=== PATIENT | male | born 1980 | race Caucasian/White ===

== ENCOUNTER 2020-11-14 12:37 | Emergency (ER) | payer MEDICAID ==
[~2020-11-14] VITALS: Ht 170.2 cm; Wt 79.5 kg
[2020-11-14 12:40] VITALS: Ht 170.2 cm; Wt 79.5 kg
[2020-11-14 13:03] LABS: BILIRUBIN NEGATIVE (NEGATIVE); KETONE SMALL mg/dL (NEGATIVE); NITRITE NEGATIVE (NEGATIVE); UROBILINOGEN NORMAL mg/dL (< 2)
[2020-11-14 13:06] LABS: BASOPHILS 1.1 % (0-2); EOSINOPHILS 14.3 % (0-7); HEMOGLOBIN 15.7 g/dL (13.5-17.5); IMMATURE GRANULOCYTES 0.2 % (0-5); LYMPHOCYTE ABS# 2.93 10x3/uL (1.32-3.57); LYMPHOCYTES 29.4 % (15-50); MCH 33.1 pg (26.0-34.0); MCHC 34.9 g/dL (31.0-37.0); MCV 94.7 fL (80.0-100.0); MONOCYTES 6.5 % (2-11); NEUTROPHIL ABS# 4.84 10x3/uL (1.78-5.38); NEUTROPHILS 48.5 % (40-80); PLATELET COUNT 208 10x3/uL (130-400); RBC 4.75 10x6/uL (4.20-6.10); RDW 13.4 % (11.5-14.5)
[2020-11-14 13:17] LABS: UDS - AMPHET POSITIVE QUAL (NEGATIVE); UDS - BARB NEGATIVE QUAL (NEGATIVE); UDS - BENZO NEGATIVE QUAL (NEGATIVE); UDS - COCAINE NEGATIVE QUAL (NEGATIVE); UDS - OPIATE NEGATIVE QUAL (NEGATIVE); UDS - PCP NEGATIVE QUAL (NEGATIVE); UDS - THC NEGATIVE QUAL (NEGATIVE)
[2020-11-14 13:21] LABS: CALC OSMOLALITY 282 mosm/kg (275-300); CARBON DIOXIDE 25.9 mmol/L (21.0-32.0); CHLORIDE - SERUM 104 mmol/L (98-107); CREATININE - SERUM 1.3 mg/dL (0.6-1.3); POTASSIUM - SERUM 3.4 mmol/L (3.5-5.1); SODIUM 140 mmol/L (136-145); UREA NITROGEN 12 mg/dL (7-18); eGFR NON AFRICAN AMERICAN 65 mL/min (90-120)
[2020-11-14 13:23] LABS: GLUCOSE 163 mg/dL (74-106)
[2020-11-14 13:27] LABS: ALBUMIN 3.7 g/dL (3.4-5.0); ALKALINE PHOSPHATASE 127 U/L (30-120); ALT (SGPT) 101 U/L (10-68); BILIRUBIN - TOTAL 0.57 mg/dL (0.2-1.3); MAGNESIUM - SERUM 2.2 mg/dL (1.8-2.4); PROTEIN - SERUM 7.6 g/dL (6.4-8.2)
[2020-11-14 13:30] LABS: ACETAMINOPHEN < 10.0 ug/mL (10.0-30.0)
--- NOTE | 2020-11-14 14:32 | NUR ---
Patient scored a moderate risk for suicidal ideation and self harm. Per Dr. Rodriguez, order for suicide watch.I spoke with [facility] charge nurse and Dr. Tilley and referral sent for placement. Suicide watch in place.
[2020-11-14 14:39] LABS: SARS-CoV-2 ANTIGEN NEGATIVE- SARS-COV-2 (NEGATIVE)
[2020-11-14 15:48] VITALS: BP 143/86
== END 2020-11-14 17:36 | disposition other institution (70) ==
LOC: D.ER 12:37
PROVIDERS: Family Medicine
DX: R44.0 Auditory hallucinations (principal); F22 Delusional disorders; F15.10 Other stimulant abuse, uncomplicated; R45.851 Suicidal ideations

== ENCOUNTER 2020-11-28 14:05 | Emergency (ER) | payer MEDICAID ==
[~2020-11-28] VITALS: Ht 170.2 cm; Wt 79.6 kg
[2020-11-28 14:11] VITALS: Ht 170.2 cm; Wt 79.6 kg
[2020-11-28] MEDS ORDERED: DEPAKOTE500 MG PO (14:14)
[2020-11-28 14:32] LABS: BASOPHILS 0.7 % (0-2); EOSINOPHILS 15.6 % (0-7); HEMATOCRIT 44.1 % (42.0-54.0); HEMOGLOBIN 15.1 g/dL (13.5-17.5); IMMATURE GRANULOCYTES 0.3 % (0-5); LYMPHOCYTE ABS# 2.22 10x3/uL (1.32-3.57); LYMPHOCYTES 18.5 % (15-50); MCH 33.2 pg (26.0-34.0); MCHC 34.2 g/dL (31.0-37.0); MCV 96.9 fL (80.0-100.0); MEAN PLATELET VOLUME 9.8 fL (7.4-10.4); MONOCYTES 13.1 % (2-11); NEUTROPHIL ABS# 6.23 10x3/uL (1.78-5.38); NEUTROPHILS 51.8 % (40-80); PLATELET COUNT 168 10x3/uL (130-400); RBC 4.55 10x6/uL (4.20-6.10); RDW 13.8 % (11.5-14.5)
[2020-11-28 14:45] LABS: ANION GAP 11.7 mmol/L (8-16); CALCIUM 9.4 mg/dL (8.5-10.1); CARBON DIOXIDE 30.7 mmol/L (21.0-32.0); CREATININE - SERUM 1.3 mg/dL (0.6-1.3); POTASSIUM - SERUM 4.4 mmol/L (3.5-5.1)
[2020-11-28 14:51] LABS: ALBUMIN 3.7 g/dL (3.4-5.0); BILIRUBIN - TOTAL 0.75 mg/dL (0.2-1.3); MAGNESIUM - SERUM 2.1 mg/dL (1.8-2.4); PROTEIN - SERUM 7.5 g/dL (6.4-8.2); VALPROIC ACID (DEPAKOTE) 23.1 ug/mL (50.0-100.0)
[2020-11-28 15:41] LABS: SARS-CoV-2 ANTIGEN NEGATIVE- SARS-COV-2 (NEGATIVE)
[2020-11-28 15:48] LABS: BILIRUBIN NEGATIVE (NEGATIVE); KETONE MODERATE mg/dL (NEGATIVE); NITRITE NEGATIVE (NEGATIVE); UROBILINOGEN 4 mg/dL (< 2)
[2020-11-28 15:49] LABS: BACTERIA MANY HPF (NONE SEEN); WHITE CELLS - URINE OCC HPF (0-1)
[2020-11-28 15:57] LABS: UDS - AMPHET POSITIVE QUAL (NEGATIVE); UDS - BARB NEGATIVE QUAL (NEGATIVE); UDS - BENZO POSITIVE QUAL (NEGATIVE); UDS - COCAINE NEGATIVE QUAL (NEGATIVE); UDS - OPIATE NEGATIVE QUAL (NEGATIVE); UDS - PCP NEGATIVE QUAL (NEGATIVE); UDS - THC NEGATIVE QUAL (NEGATIVE)
[2020-11-28 19:10] VITALS: BP 148/92
[2020-11-30 10:12] LABS: HEPATITIS C ANTIBODY <0.1 S/CO RAT (0.0-0.9)
== END 2020-11-28 22:30 ==
LOC: D.ER 14:05
PROVIDERS: Family Medicine
DX: F29 Unspecified psychosis not due to a substance or known physiological condition (principal); F15.10 Other stimulant abuse, uncomplicated; R48.8 Other symbolic dysfunctions; R44.0 Auditory hallucinations; R44.1 Visual hallucinations